=== PATIENT | female | born 1955 | race Hispanic/Latino ===

== ENCOUNTER 2020-10-12 09:28 | Inpatient (IN) | payer MEDICARE ==
[~2020-10-12] VITALS: Ht 160 cm; Wt 92.0 kg
[2020-10-12 09:55] LABS: APPEARANCE,URINE Cloudy (CLEAR); BILIRUBIN,URINE Negative (NEGATIVE); COLOR,URINE Yellow (YELLOW); GLUCOSE, URINE (UA) Negative (NEGATIVE); KETONES,URINE Negative (NEGATIVE); LEUKOCYTE ESTERASE ,URINE Trace (NEGATIVE); NITRATE,URINE Negative (NEGATIVE); OCCULT BLOOD,URINE Small (NEGATIVE); PROTEIN,URINE Trace mg/dL (NEGATIVE); UROBILINOGEN,URINE 0.2 mg/dL (0.2-1.0)
[2020-10-12 10:14] LABS: BASOPHILS % (AUTO) 0.3 % (0.0-5.0); EOSINOPHILS % (AUTO) 0.1 % (0.0-8.0); HEMATOCRIT 39.4 % (36-48); LYMPHOCYTES % (AUTO) 12.5 % (21.0-51.0); MEAN CORPUSCULAR HEMOGLOBIN 29.9 pg (27.0-33.0); MEAN CORPUSCULAR HGB CONC 32.7 g/dL (32.0-36.0); MEAN CORPUSCULAR VOLUME 91.4 fL (79-99); NEUTROPHILS % (AUTO) 81.6 % (40.0-77.0); PLATELET COUNT (AUTO) 253 K/uL (130-400); RED BLOOD CELL COUNT(AUTO) 4.31 MIL/uL (4.00-5.50); RED CELL DISTRIBUTION WIDTH 12.5 % (11.0-15.5); WHITE BLOOD COUNT (AUTO) 9.7 K/uL (4.8-10.8)
[2020-10-12 10:24] LABS: CREATININE 1.2 mg/dL (0.5-1.5); POTASSIUM 3.8 mmol/L (3.5-5.1)
[2020-10-12 10:29] LABS: ALBUMIN 4.4 g/dL (3.5-5.0); BILIRUBIN,TOTAL 0.5 mg/dL (0.2-1.0); TOTAL PROTEIN, SERUM 8.9 g/dL (6.0-8.3)
[2020-10-12 10:33] LABS: AMORPHOUS SEDIMENT,UR Many /LPF (None Seen); BACTERIA,URINE Moderate /HPF (None Seen); MUCUS,URINE Few LPF (None Seen)
[2020-10-12] MEDS ORDERED: IOHEXOL-350 75 ML VIAL IV ONE (11:10)
[2020-10-12] MEDS ORDERED: KETOROLAC 15MG/ML VIAL (15MG/ML) ONE (11:54)
[2020-10-12] MEDS ORDERED: FENTANYL CITRATE PF 50 MCG/1 ML 2ML VIAL ONE (12:17)
[2020-10-12] MEDS ORDERED: TAMSULOSIN HCL 0.4 MG CAP.ER.24H ONE (16:23)
[2020-10-12] MEDS ORDERED: CEFTRIAXONE 1G VIAL ONE (16:24)
[2020-10-12] MEDS ORDERED: ACETAMINOPHEN 325 MG TAB PO PRN (18:00)
[2020-10-12] MEDS: CEFTRIAXONE 1G VIAL IVP SCH (18:00)
[2020-10-12] MEDS: LACTATED RINGERS 1000ML 1,000 ML IV SCH (18:00)
[2020-10-12] MEDS ORDERED: ONDANSETRON 4MG INJ IV PRN (18:00)
[2020-10-12] MEDS ORDERED: KETOROLAC 15MG/ML VIAL (15MG/ML) IV PRN (18:30)
[2020-10-12] MEDS ORDERED: FAMOTIDINE 20MG VIAL IV ONE (20:46)
[2020-10-12] MEDS ORDERED: LACTATED RINGERS 1000ML 1,000 ML IV ONE (20:47)
[2020-10-12] MEDS: FAMOTIDINE 20MG VIAL IV SCH (21:00)
[2020-10-13] VITALS (18 sets, daily range): BP systolic 91–147; BP diastolic 43–73
[2020-10-13] MEDS ORDERED: CEFTRIAXONE 1G VIAL ONE (05:22)
[2020-10-13 06:10] LABS: HEMATOCRIT 39.5 % (36-48); MEAN CORPUSCULAR HEMOGLOBIN 29.1 pg (27.0-33.0); MEAN CORPUSCULAR HGB CONC 31.6 g/dL (32.0-36.0); MEAN CORPUSCULAR VOLUME 92.1 fL (79-99); RED BLOOD CELL COUNT(AUTO) 4.29 MIL/uL (4.00-5.50); RED CELL DISTRIBUTION WIDTH 12.6 % (11.0-15.5); WHITE BLOOD COUNT (AUTO) 9.8 K/uL (4.8-10.8)
[2020-10-13 06:18] LABS: BILIRUBIN,TOTAL 0.5 mg/dL (0.2-1.0); CREATININE 1.1 mg/dL (0.5-1.5); POTASSIUM 4.1 mmol/L (3.5-5.1); TOTAL PROTEIN, SERUM 7.9 g/dL (6.0-8.3)
[2020-10-13] MEDS: LACTATED RINGERS 1000ML 1,000 ML IV SCH ×3 (07:20→22:46)
[2020-10-13] MEDS ORDERED: ERGO2000 PO (10:59)
[2020-10-13] MEDS ORDERED: SIMV20TA2 PO (11:00)
[2020-10-13] MEDS ORDERED: LEVO50TA4 PO (11:01)
[2020-10-13] MEDS ORDERED: TELM1TAB4 PO (11:02)
[2020-10-13] MEDS: TAMSULOSIN HCL 0.4 MG CAP.ER.24H PO SCH (11:15)
[2020-10-13] MEDS: CEFTRIAXONE 1G VIAL IVP SCH ×2 (11:16→18:05)
[2020-10-13] MEDS ORDERED: IOHEXOL-350 50ML VIAL IV ONE (18:41)
[2020-10-13] MEDS: FAMOTIDINE 20MG VIAL IV SCH (21:00)
[2020-10-13] MEDS ORDERED: GLYCOPYRROLATE 1 MG/5 ML SYRINGE ONE (21:28)
[2020-10-13] MEDS ORDERED: ROCURONIUM 10MG/1ML SYR 10 MG/ML ML ONE (21:28)
[2020-10-13] MEDS ORDERED: ONDANSETRON 4MG INJ ONE (21:28)
[2020-10-13] MEDS ORDERED: MIDAZOLAM HCL 1 MG/ML 2ML VIAL ONE (21:28)
[2020-10-13] MEDS ORDERED: NEOSTIGMINE 5MG/5ML SYR IV ONE (21:28)
[2020-10-13] MEDS ORDERED: DEXAMETHASONE SOD PHOSPHATE 10MG/ML 1ML VIAL ONE (21:28)
[2020-10-13] MEDS ORDERED: LIDOCAINE PF 100MG/5ML (2%) SYRINGE 5ML ONE (21:28)
[2020-10-13] MEDS ORDERED: SUCCINYLCHOLINE 200MG/10ML SYR ONE (21:28)
[2020-10-13] MEDS ORDERED: PROPOFOL 10 MG/ML 20ML VIAL IV ONE (21:29)
[2020-10-13] MEDS ORDERED: FENTANYL CITRATE PF 50 MCG/1 ML 2ML VIAL ONE (21:29)
[2020-10-13] MEDS ORDERED: MEPERIDINE-PF 25 MG/ML SYG ONE (21:29)
[2020-10-14] VITALS (8 sets, daily range): BP systolic 100–123; BP diastolic 52–79
[2020-10-14] MEDS: CEFTRIAXONE 1G VIAL IVP SCH (05:31)
[2020-10-14] MEDS ORDERED: LEVOTHYROXINE 50 MCG TABLET PO SCH (06:30)
[2020-10-14] MEDS: TAMSULOSIN HCL 0.4 MG CAP.ER.24H PO SCH (08:41)
[2020-10-14] MEDS: LACTATED RINGERS 1000ML 1,000 ML IV SCH (08:45)
[2020-10-14] MEDS ORDERED: TELMISARTAN PO SCH (09:00)
[2020-10-14] MEDS ORDERED: HYDROCHLOROTHIAZIDE 12.5 MG PO SCH (09:00)
[2020-10-14] MEDS ORDERED: ERGOCALCIFEROL 50 MCG PO SCH (09:00)
[2020-10-14] MEDS ORDERED: SIMVASTATIN 20 MG TABLET PO SCH (21:00)
== END 2020-10-14 12:45 | disposition home or self-care (01) | DRG 661 ==
LOC: EDH 09:28 → EDHIP 17:47 → 3CH 10-13 08:53
PROVIDERS: ADMIT Internal Medicine; ATTEND Internal Medicine
PROC: 0TC68ZZ Extirpation of Matter from Right Ureter, Via Natural or Artificial Opening Endoscopic (ICD-10-PCS; principal; 2020-10-13 21:40)
PROC: 0T768DZ Dilation of Right Ureter with Intraluminal Device, Via Natural or Artificial Opening Endoscopic (ICD-10-PCS; 2020-10-13 21:40)
DX: N13.6 Pyonephrosis (principal); E03.9 Hypothyroidism, unspecified; I10 Essential (primary) hypertension; E78.00 Pure hypercholesterolemia, unspecified; Z87.442 Personal history of urinary calculi; Z90.49 Acquired absence of other specified parts of digestive tract
CPT/HCPCS: 36415; 74018; 74177; 80053; 81001; 82360; 84145; 85025; 85027; 87088; C1758; C1769; C1894; C2617; G0378; J0330; J0696; J1100; J1885; J2001; J2175; J2250; J2405; J2704; J2710; J3010; J3490; J7030; J7120; Q9967

== ENCOUNTER 2021-03-18 13:31 | Emergency (ER) | payer MEDICARE ==
[~2021-03-18] VITALS: Ht 160 cm; Wt 90.7 kg
[~2021-03-18 13:31] MED LIST: ERGO2000 PO; LEVO50TA4 PO; SIMV20TA2 PO; TELM1TAB4 PO
[2021-03-18] MEDS ORDERED: DIPH,PERTUSS(ACELL),TET VAC/PF 0.5 ML VIAL IM ONE (14:30)
[2021-03-18] MEDS ORDERED: ACETAMINOPHEN 500 MG TABLET PO ONE (14:30)
[2021-03-18] MEDS ORDERED: TETANUS/DIPHTHERIA TOXOID [ADULT] 0.5 ML VIAL IM ONE (15:26)
== END 2021-03-18 16:06 | disposition home or self-care (01) ==
LOC: EDH 13:31
DX: S01.112A Laceration without foreign body of left eyelid and periocular area, initial encounter (principal); I10 Essential (primary) hypertension; E78.00 Pure hypercholesterolemia, unspecified; E05.90 Thyrotoxicosis, unspecified without thyrotoxic crisis or storm; Z90.49 Acquired absence of other specified parts of digestive tract; Z87.442 Personal history of urinary calculi; Z79.899 Other long term (current) drug therapy; W01.10XA Fall on same level from slipping, tripping and stumbling with subsequent striking against unspecified object, initial encounter; Y93.89 Activity, other specified; Y92.89 Other specified places as the place of occurrence of the external cause; Y99.8 Other external cause status
CPT/HCPCS: 12011; 70450; 72125; 90471; 90472; 90714; 90715

== ENCOUNTER 2022-11-23 09:47 | Emergency (ER) | payer MEDICARE ==
[~2022-11-23] VITALS: Ht 160 cm; Wt 84.4 kg
[~2022-11-23 09:47] MED LIST changes: +SIMV-343 PO; -SIMV20TA2 PO
[2022-11-23 10:41] VITALS: BP 145/78
== END 2022-11-23 10:38 | disposition home or self-care (01) ==
LOC: EDH 09:47
DX: I83.91 Asymptomatic varicose veins of right lower extremity (principal); I10 Essential (primary) hypertension; E78.00 Pure hypercholesterolemia, unspecified; E03.9 Hypothyroidism, unspecified; Z79.899 Other long term (current) drug therapy; Z87.442 Personal history of urinary calculi; Z90.49 Acquired absence of other specified parts of digestive tract; Z98.890 Other specified postprocedural states
CPT/HCPCS: 99281

== ENCOUNTER → 2022-12-29 | Outpatient (CLI) | payer MEDICARE | END | disposition home or self-care (01) | LOC: SHCH 08:05 | PROVIDERS: ATTEND Internal Medicine Cardiovascular Disease | DX: I87.2 Venous insufficiency (chronic) (peripheral) (principal) | CPT/HCPCS: 93970 ==

== ENCOUNTER → 2022-12-31 | Outpatient (CLI) | payer MEDICARE | END | disposition home or self-care (01) | LOC: SHCH 13:07 | PROVIDERS: ATTEND Internal Medicine Cardiovascular Disease | DX: I11.9 Hypertensive heart disease without heart failure (principal) | CPT/HCPCS: 93306 ==

== ENCOUNTER 2023-10-03 09:59 | Emergency (ER) | payer MEDICARE ==
[~2023-10-03] VITALS: Ht 160 cm; Wt 88.5 kg
[2023-10-03 10:52] LABS: APPEARANCE,URINE CLEAR (CLEAR); BILIRUBIN,URINE NEGATIVE (NEGATIVE); COLOR,URINE LIGHT-YELLOW (YELLOW); GLUCOSE, URINE (UA) NEGATIVE (NEGATIVE); KETONES,URINE NEGATIVE (NEGATIVE); LEUKOCYTE ESTERASE ,URINE 250 Leu/uL (NEGATIVE); NITRATE,URINE NEGATIVE (NEGATIVE); OCCULT BLOOD,URINE LARGE (NEGATIVE); PH,URINE 5.5 (5.0-8.0); PROTEIN,URINE 20 mg/dL (NEGATIVE); UROBILINOGEN,URINE 0.2 mg/dL (0.2-1.0)
[2023-10-03 11:27] LABS: ADD UA MICROSCOPIC YES
[2023-10-03 11:32] LABS: BACTERIA,URINE RARE /HPF (None Seen); MUCUS,URINE RARE LPF (None Seen); SQUAMOUS EPITHELIAL CELL,UR FEW /HPF (0-2); WBC,URINE 51-100 /HPF (0-1)
[2023-10-03] MEDS ORDERED: CEFD300C3 PO (13:16)
[2023-10-03] MEDS: CEFTRIAXONE 1G VIAL IM ONE (13:21)
[2023-10-03] MEDS: LIDOCAINE HCL 1% 20 ML VIAL ONE (13:21)
[2023-10-03] MEDS: CEFTRIAXONE 1G VIAL ONE (13:21)
[2023-10-03 13:40] VITALS: BP 136/74; PULSE 82; RESP 16; O2SAT 97
== END 2023-10-03 13:38 | disposition home or self-care (01) ==
LOC: EDH 09:59
DX: N39.0 Urinary tract infection, site not specified (principal); E78.00 Pure hypercholesterolemia, unspecified; I10 Essential (primary) hypertension; Z79.890 Hormone replacement therapy; Z79.899 Other long term (current) drug therapy; Z90.49 Acquired absence of other specified parts of digestive tract
CPT/HCPCS: 99283; 87077; 87088; 87186; 81001; 96372; J0696